=== PATIENT | male | born 1985 | race Two or more races ===

== ENCOUNTER 2022-02-22 04:25 | Emergency (ER) | payer OTHER ==
[~2022-02-22] VITALS: Ht 167.6 cm; Wt 86.6 kg
[2022-02-22 08:07] VITALS: BP 150/82
== END 2022-02-22 08:20 | disposition home or self-care (01) ==
LOC: ER 04:25
DX: S61.411A Laceration without foreign body of right hand, initial encounter (principal); W25.XXXA Contact with sharp glass, initial encounter; Y93.89 Activity, other specified; Y92.89 Other specified places as the place of occurrence of the external cause; Y99.8 Other external cause status
CPT/HCPCS: 12002; 73130